=== PATIENT | male | born 1940 | race Caucasian/White ===

== ENCOUNTER 2021-09-02 15:30 | Observation (INO) | payer MEDICARE, OTHER ==
[~2021-09-02] VITALS: Ht 170.2 cm; Wt 110.0 kg
[2021-09-02 16:46] LABS: HEMATOCRIT 45.3 % (39.0-50.0); HEMOGLOBIN 14.9 g/dl (14.0-18.0); IMMATURE GRANULOCYTES 0.2 % (0.0-5.0); MEAN CELL VOLUME 94.6 fL CALC (80.0-100.0); MEAN CORPUSCULAR HGB 31.1 pG CALC (26.0-32.0); MEAN CORPUSCULAR HGB CONC 32.9 g/dL CAL (32.0-36.0); NEUT# 9.89 thou/uL (1.82-7.42); RED BLOOD COUNT 4.79 mill/uL (4.70-6.10); RED CELL DISTRI WIDTH 11.8 % (11.5-15.5)
[2021-09-02 16:59] LABS: ALKALINE PHOSPHATASE 61 u/l (38-126); ANION GAP 10 (6-22 (CALC)); BILIRUBIN, TOTAL 0.9 mg/dL (0.0-1.4); BUN 17 mg/dL (8-23); BUN/CREATININE RATIO 17 (12-20 (CALC)); CARBON DIOXIDE 34 mmol/l (22-30); CHLORIDE 99 mmol/l (95-108); GFR > 60 ML/MIN (>=60 (CALC)); GFR FOR AFR.AMER. > 60 ML/MIN (>=60 (CALC)); POTASSIUM 3.9 mmol/l (3.5-5.1); SGOT/AST 35 u/l (19-48); SODIUM 139 mmol/l (137-146); TOTAL PROTEIN 7.7 g/dL (6.3-8.2)
[2021-09-02 17:11] LABS: MYOGLOBIN 246 ng/mL (0 - 121)
[2021-09-02] MEDS ORDERED: ZETIA10 MG PO (17:41)
[2021-09-02] MEDS ORDERED: TRELEGY ELLIPTA1 AER (17:41)
[2021-09-02] MEDS ORDERED: TAMSULOSIN0.4 MG PO (17:42)
[2021-09-02] MEDS ORDERED: SIMVASTATIN10 MG PO (17:42)
[2021-09-02] MEDS ORDERED: KAPSPARGO SPRIN25 MG (17:42)
[2021-09-02] MEDS ORDERED: MULTI VIT PO (17:43)
[2021-09-02] MEDS ORDERED: LOSARTAN POTASS25 MG PO (17:43)
[2021-09-02] MEDS ORDERED: FISH OIL1000 MG PO (17:43)
[2021-09-02] MEDS ORDERED: PROTONIX40 M2 PO (17:43)
[2021-09-02] MEDS ORDERED: VITAMIN D35000 UNI1 PO (17:44)
[2021-09-02 20:38] VITALS: BP 146/63
[2021-09-03] VITALS (7 sets, daily range): BP systolic 91–131; BP diastolic 48–63
[2021-09-03 05:40] LABS: MEAN CELL VOLUME 97.8 fL CALC (80.0-100.0); MEAN CORPUSCULAR HGB 31.8 pG CALC (26.0-32.0); MEAN CORPUSCULAR HGB CONC 32.5 g/dL CAL (32.0-36.0); RED BLOOD COUNT 4.09 mill/uL (4.70-6.10); RED CELL DISTRI WIDTH 12.2 % (11.5-15.5)
[2021-09-03 06:05] LABS: ANION GAP 8 (6-22 (CALC)); BUN 18 mg/dL (8-23); BUN/CREATININE RATIO 18 (12-20 (CALC)); CARBON DIOXIDE 32 mmol/l (22-30); CHLORIDE 101 mmol/l (95-108); GFR > 60 ML/MIN (>=60 (CALC)); GFR FOR AFR.AMER. > 60 ML/MIN (>=60 (CALC)); MAGNESIUM 1.9 mg/dL (1.6-2.3); POTASSIUM 3.8 mmol/l (3.5-5.1); SODIUM 137 mmol/l (137-146)
[2021-09-03] MEDS ORDERED: SIMVASTATIN80 MG PO (09:35)
[2021-09-03] MEDS ORDERED: LOPRESSOR50 M1 PO (09:35)
[2021-09-03] MEDS ORDERED: PROAIR HFA108 MCG/AC (09:36)
[2021-09-04 03:55] VITALS: BP 103/63
[2021-09-04 06:08] LABS: HEMATOCRIT 41.1 % (39.0-50.0); HEMOGLOBIN 13.4 g/dl (14.0-18.0); MEAN CELL VOLUME 96.3 fL CALC (80.0-100.0); MEAN CORPUSCULAR HGB 31.4 pG CALC (26.0-32.0); MEAN CORPUSCULAR HGB CONC 32.6 g/dL CAL (32.0-36.0); RED BLOOD COUNT 4.27 mill/uL (4.70-6.10); RED CELL DISTRI WIDTH 12.2 % (11.5-15.5)
[2021-09-04 06:15] LABS: ANION GAP 8 (6-22 (CALC)); BUN 18 mg/dL (8-23); BUN/CREATININE RATIO 18 (12-20 (CALC)); CARBON DIOXIDE 34 mmol/l (22-30); CHLORIDE 99 mmol/l (95-108); GFR > 60 ML/MIN (>=60 (CALC)); GFR FOR AFR.AMER. > 60 ML/MIN (>=60 (CALC)); MAGNESIUM 1.9 mg/dL (1.6-2.3); POTASSIUM 3.7 mmol/l (3.5-5.1); SODIUM 138 mmol/l (137-146)
[2021-09-04 08:12] VITALS: BP 141/64
[2021-09-04 11:04] VITALS: BP 106/51
[2021-09-04 15:45] VITALS: BP 132/60
[2021-09-04 19:40] VITALS: BP 117/68
[2021-09-05 00:05] VITALS: BP 130/62
[2021-09-05 04:00] VITALS: BP 110/58
[2021-09-05 04:57] LABS: HEMATOCRIT 42.2 % (39.0-50.0); HEMOGLOBIN 13.4 g/dl (14.0-18.0); MEAN CELL VOLUME 97.9 fL CALC (80.0-100.0); MEAN CORPUSCULAR HGB 31.1 pG CALC (26.0-32.0); MEAN CORPUSCULAR HGB CONC 31.8 g/dL CAL (32.0-36.0); RED BLOOD COUNT 4.31 mill/uL (4.70-6.10); RED CELL DISTRI WIDTH 12.2 % (11.5-15.5)
[2021-09-05 05:11] LABS: ALBUMIN 3.4 g/dL (3.2-5.0); ALKALINE PHOSPHATASE 53 u/l (38-126); ANION GAP 9 (6-22 (CALC)); BILIRUBIN, TOTAL 0.6 mg/dL (0.0-1.4); BUN 24 mg/dL (8-23); BUN/CREATININE RATIO 21 (12-20 (CALC)); CARBON DIOXIDE 35 mmol/l (22-30); CHLORIDE 99 mmol/l (95-108); CREATININE 1.1 mg/dL (0.7-1.3); GFR > 60 ML/MIN (>=60 (CALC)); GFR FOR AFR.AMER. > 60 ML/MIN (>=60 (CALC)); POTASSIUM 3.6 mmol/l (3.5-5.1); SGOT/AST 29 u/l (19-48); SODIUM 139 mmol/l (137-146); TOTAL PROTEIN 6.5 g/dL (6.3-8.2)
[2021-09-05 07:15] VITALS: BP 131/61
[2021-09-05] MEDS ORDERED: LASIX 40 MG TAB40 MG PO (08:33)
[2021-09-05] MEDS ORDERED: ZPAK PO (08:33)
[2021-09-05 09:14] VITALS: BP 131/61
== END 2021-09-05 11:35 | disposition home or self-care (01) ==
LOC: ED 15:30 → ED-I 17:30 → ED 17:46 → MS2 17:47
PROVIDERS: Emergency Medicine; Nurse Practitioner; Nurse Practitioner Family; ADMIT Internal Medicine; ATTEND Internal Medicine
DX: I11.0 Hypertensive heart disease with heart failure (principal); J44.1 Chronic obstructive pulmonary disease with (acute) exacerbation; J18.9 Pneumonia, unspecified organism; J44.0 Chronic obstructive pulmonary disease with (acute) lower respiratory infection; I50.9 Heart failure, unspecified; R09.02 Hypoxemia; E78.5 Hyperlipidemia, unspecified; M41.9 Scoliosis, unspecified; E66.9 Obesity, unspecified; Z68.39 Body mass index [BMI] 39.0-39.9, adult; Z99.81 Dependence on supplemental oxygen; Z86.73 Personal history of transient ischemic attack (TIA), and cerebral infarction without residual deficits; Z20.822 Contact with and (suspected) exposure to COVID-19
CPT/HCPCS: J1650